=== PATIENT | female | born 2000 | race Hispanic/Latino ===

== ENCOUNTER 2025-09-02 13:22 | Emergency (ER) | payer OTHER ==
[2025-09-02] MEDS ORDERED: Droperidol 5 MG/2 ML VIAL ONE (14:10)
[2025-09-02 14:11] LABS: Hematocrit 34.8 % (34.9-44.5); Hemoglobin 10.9 g/dL (12.0-15.5); Mean Corpuscular Hemoglobin 23.2 pg (27.0-33.0); Mean Corpuscular Volume 74.0 fL (81.6-98.3); Platelet Count 370 10x3/uL (150-450); Red Blood Cell (RBC) Count 4.70 10x6/uL (3.90-5.03); White Blood Cell (WBC) Count 6.62 10x3/uL (3.5-10.5)
[2025-09-02 14:12] LABS: #Basophils Less than 0.03 10x3/uL (0.0-0.2); #Eosinophils 0.04 10x3/uL (0.0-0.5); #Monocytes 0.26 10x3/uL (0.0-1.1); #Neutrophils 3.97 10x3/uL (1.5-8.4); %Basophils 0.2 % (0.0-2.0); %Eosinophils 0.6 % (0.0-6.0); %Lymphocytes 35.2 % (18.0-47.0); %Monocytes 3.9 % (0.0-10.0); %Neutrophils 59.9 % (40.0-75.0)
[2025-09-02 14:22] LABS: BHCG - Serum Negative (NEGATIVE); Pregs Control Background? CLEAR/WHITE (CLR/WHITE); Pregs Control Bar Appear? YES (CONTROL BAR)
[2025-09-02 14:27] LABS: ALT (SGPT) 22 U/L (Less than 34); AST (SGOT) 28 U/L (11-34); Albumin 3.8 g/dL (3.1-4.5); Alkaline Phosphatase 79 U/L (40-110); Anion Gap 11 mmol/L (10-20); BUN (Urea Nitrogen) 10 mg/dL (7.0-18.7); Bilirubin, Total 0.3 mg/dL (0.3-1.2); Calc. Creatinine Clearance 0 mL/min (70-130); Calcium 8.6 mg/dL (7.8-10.44); Carbon Dioxide 24 mmol/L (22-29); Chloride 106 mmol/L (98-107); Globulin 4.1 g/dL (2.4-3.5); Glucose 102 mg/dL (70-105); Lipase 26 U/L (8-78); Potassium 3.6 mmol/L (3.5-5.1); Sodium 137 mmol/L (136-145)
[2025-09-02 14:36] LABS: Microcytosis SLIGHT = 6-15 cells (100X) (0-5/hpf); Ovalocytes SLIGHT = 2-5 cells (100X) (0-1/hpf); Platelet Adequacy Comment Appears Adequate
[2025-09-02 14:54] LABS: Glucose, Urine (Dipstick) Normal (Negative); Leukocyte Negative (Negative); Protein, Urine (Dipstick) 15 mg/dl (Neg-Trace); Specific Gravity, Urine 1.015 (1.005-1.030)
[2025-09-02] MEDS ORDERED: Famotidine/PF 20 mg/2ml Vial ONE (15:08)
[2025-09-02 16:04] LABS: Bacteria/HPF Rare-Few HPF (None Seen); CAUTI Indications for Culture Pelvic or flank pain; RBC/HPF 0-3 HPF (0-3); Urine Culture Reflex No No; WBC/HPF 0-3 HPF (0-3)
== END 2025-09-02 15:54 | disposition home or self-care (01) ==
LOC: CSHERS 13:22
DX: G43.909 Migraine, unspecified, not intractable, without status migrainosus (principal)
CPT/HCPCS: 36415; 80053; 81001; 83690; 84703; 85025; 96374; 96375; J1790